=== PATIENT | male | born 1985 | race Caucasian/White ===

== ENCOUNTER → 2017-11-27 | Outpatient (CLI) | payer BC ==
[~2017-11-27] MED LIST: NAPR-915 PO
== END ==
LOC: LAB 09:19
PROVIDERS: ATTEND Podiatrist
DX: M10.9 Gout, unspecified (principal)
CPT/HCPCS: 36415; 84550

== ENCOUNTER → 2019-09-29 | Outpatient (CLI) | payer BC ==
--- NOTE | 2019-09-29 10:41 | Diagnostic Imaging Report ---
EXAMINATION: Magnetic resonance imaging of the right ankle without contrast. DATE: September 29, 2019. COMPARISON: Right foot radiographs March 16, 2016. HISTORY: 34-year-old male, right ankle pain and swelling. No known injury. TECHNIQUE: Magnetic Resonance Imaging sequences were performed of the ankle without contrast. FINDINGS: TENDONS AND LIGAMENTS: The Achilles tendon is unremarkable. The posterior flexor tendons (tibialis posterior, flexor digitorum longus, flexor hallucis longus) are intact. The peroneal tendons (peroneus longus and peroneus brevis) are intact. The anterior extensor tendons (tibialis anterior, extensor hallucis longus, and extensor digitorum longus tendons) are intact. The anterior and posterior syndesmotic ligaments are intact. The anterior talofibular, posterior talofibular, and calcaneofibular ligaments are intact. There is slight irregularity of the deep deltoid ligament, consistent with a sprain injury. There is edema-like signal in the medial talus and medial malleolus at the attachment sites of the deep deltoid ligament, consistent with sites of bone contusion. The plantar fascia is intact. JOINTS: The ankle mortise is intact. There are trace tibiotalar and posterior subtalar joint effusions. BONE: The bones all have normal configuration. There are bone contusions of the medial talus and medial malleolus at the attachment sites of the deep deltoid ligament as mentioned above. There is no identified acute fracture. The talar dome is intact. BURSAE AND SOFT TISSUES: There is posterior medial subcutaneous edema at the level of ankle and nonspecific dorsal subcutaneous edema at the level of the lateral foot. IMPRESSION: 1. Sprain injury of the deep deltoid ligament with bone contusions of the medial talus and medial malleolus. 2. Intact anterior talofibular, posterior talofibular, and calcaneofibular ligaments. Intact syndesmotic ligaments. 3. Negative for tendon tear. 4. No acute fracture. Intact talar dome. Dictated by: Dictated on workstation # [id number]
== END ==
LOC: RAD 09:19
PROVIDERS: ATTEND Podiatrist Foot & Ankle Surgery
DX: M76.71 Peroneal tendinitis, right leg (principal); S93.421A Sprain of deltoid ligament of right ankle, initial encounter; S90.01XA Contusion of right ankle, initial encounter; X58.XXXA Exposure to other specified factors, initial encounter
CPT/HCPCS: 73721